=== PATIENT | male | born 1985 | race African-American/Black ===

== ENCOUNTER 2019-11-25 21:41 | Inpatient (IN) | payer OTHER ==
--- NOTE | 2019-11-25 22:01 | HP ---
COWS - Scale Resting Pulse: 0= [place] 80 or Below Sweatin= Beads of Sweat on Face Restless Observation: 1= Difficult to Sit Still Pupil Size: 1= Pupils >than Normal Bone or Joint Aches: 4=Acute Joint/Muscle Pain Runny Nose/ Eye Tearin= None GI Upset > 30mins: 1= Stomach Cramp Tremor Observation: 0= None Yawning Observation: 1= 1-2x During Session Anxiety or Irritability: 1=Feels Anxious/Irritable Goose Flesh Skin: 0=Smooth Skin COWS Score: 12 CIWA Score - Admission Criteria OAS Guidelines: Admission for Medically Managed Detox: Requires at least one of the followin. CIWA greater than 12 2. Seizures within the past 24 hours 3. Delirium tremens within the past 24 hours 4. Hallucinations within the past 24 hours 5. Acute intervention needed for co occurring medical disorder 6. Acute intervention needed for co occurring psychiatric disorder 7. Severe withdrawal that cannot be handled at a lower level of care (continued vomiting, continued diarrhea, abnormal vital signs) requiring intravenous medication and/or fluids 8. Admission ROS [facility] Chief Complaint: seeking heroin detox History of Present Illness: HERE FOR HEROIN DETOX. THIS IS CLIENT FIRST ADMISSION HERE. PRESENTS WITH C/O WORSENING WITHDRAWAL SX'S. SEEKING DETOX. HE REPORTS DAILY USE OF HEROIN. LAST USED TODAY APPROX 4 BAGS VIA NASAL. DENIES IVDU. DENIES PREVIOUS INPATIENT TXMENT. DENIES HX/O DRUG OVERDOSE, BLACKOUTS, SEIZURE D/O. DENIES ANY SIGNIFICANT CLEAN TIME. HAS BEEN AN ADDICT OF HEROIN FOR THE PAST 2 YEARS. 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 Exam Limitations: No Limitations - Ebola screening Have you traveled outside of the country in the last 21 days: No Have you had contact with anyone from an Ebola affected area: No Have you been sick,other than usual withdrawal symptoms: No Do you have a fever: No - Review of Systems Constitutional: Chills, Loss of Appetite, Malaise, Changes in sleep, Unintentional Wgt. Loss, Other (SWEATS) EENT: reports: No Symptoms Reported Respiratory: reports: No Symptoms reported Cardiac: reports: No Symptoms Reported GI: reports: Poor Appetite, Poor Fluid Intake, Abdominal cramping : reports: No Symptoms Reported Musculoskeletal: reports: No Symptoms Reported Integumentary: reports: Other (SWEATING) Neuro: reports: No Symptoms reported Endocrine: reports: No Symptoms Reported Hematology: reports: No Symptoms Reported Psychiatric: reports: Orientated x3, Depressed (DENIES SI/HI/Avh) Other Systems: Reviewed and Negative Patient History - Patient Medical History Hx Anemia: No Hx Asthma: No Hx Chronic Obstructive Pulmonary Disease (COPD): No Hx Cancer: No Hx Cardiac Disorders: No Hx Congestive Heart Failure: No Hx Hypertension: Yes (NON COMPLAINT- DOES NOT RECALL MED) Hx Hypercholesterolemia: No Hx Pacemaker: No HX Cerebrovascular Accident: No Hx Seizures: No Hx Dementia: No Hx Diabetes: No Hx Gastrointestinal Disorders: No Hx Liver Disease: No Hx Genitourinary Disorders: No Hx Sexually Transmitted Disorders: No Hx Renal Disease (ESRD): No Hx Thyroid Disease: No Hx Human Immunodeficiency Virus (HIV): No Hx Hepatitis C: No Hx Depression: Yes (NO MEDS) Hx Suicide Attempt: No Hx Bipolar Disorder: No Hx Schizophrenia: No Other Medical History: DENIES - Patient Surgical History Past Surgical History: No - PPD History Previous Implant?: Yes Documented Results: Positive w/o proof PPD to be Administered?: Yes - Smoking Cessation Smoking history: Current every day smoker Have you smoked in the past 12 months: Yes Aproximately how many cigarettes per day: 3 Cigars Per Day: 0 Hx Chewing Tobacco Use: No Initiated information on smoking cessation: Yes 'Breaking Loose' booklet given: 11/25/19 - Substance & Tx. History Hx Alcohol Use: No Hx Substance Use: Yes Substance Use Type: Heroin Hx Substance Use Treatment: No - Substances abused Heroin Substance route: Inhalation Frequency: Daily Amount used: 4 Age of first use: 32 Date of last use: 11/25/19 (3) Admission Physical Exam S - Physical General Appearance: Yes: Mild Distress, Sweating, Anxious HEENTM: Yes: EOMI, Normocephalic, Normal Voice, ARIELLE, Pharynx Normal, Other (POOR DENTITION) Respiratory: Yes: Chest Non-Tender, Lungs Clear, Normal Breath Sounds, No Respiratory Distress, No Accessory Muscle Use Neck: Yes: No masses,lesions,Nodules, Supple, Trachea in good position Breast: Yes: Breasts Symetrical Cardiology: Yes: Regular Rhythm, Regular Rate, S1, S2 Abdominal: Yes: Non Tender, Soft, Increased Bowel Sounds Genitourinary: Yes: Within Normal Limits (NO C/O) Back: Yes: Normal Inspection Musculoskeletal: Yes: full range of Motion, Gait Steady Extremities: Yes: Normal Capillary Refill, Normal Range of Motion, Non-Tender Neurological: Yes: Fully Oriented, Alert, Motor Strength 5/5, Depressed Affect Integumentary: Yes: Cold (COOL), Clammy Lymphatic: Yes: Within Normal Limits - Diagnostic (1) Opioid dependence with withdrawal Current Visit: Yes Status: Acute (2) Homeless Current Visit: Yes Status: Suspected Comment: REPORTED (3) Nicotine dependence Current Visit: Yes Status: Chronic Qualifiers: Nicotine product type: cigarettes Substance use status: uncomplicated Qualified Code(s): F17.210 - Nicotine dependence, cigarettes, uncomplicated (4) Substance induced mood disorder Current Visit: Yes Status: Acute (5) Depressed affect Current Visit: Yes Status: Acute (6) HTN (hypertension) Current Visit: Yes Status: Chronic Qualifiers: Hypertension type: unspecified Qualified Code(s): I10 - Essential (primary) hypertension (7) Non compliance w medication regimen Current Visit: Yes Status: Chronic Cleared for Admission [facility] - Detox or Rehab [facility] Level of Care: Medically Managed Detox Regimen/Protocol: Methadone Claeared for Rehab Admission: No Inpatient Rehab Admission - Rehab Decision to Admit Inpatient rehab admission?: No
[2019-11-25] MEDS ORDERED: BISMUTH SUBSALICYLATE 524 MG/30 ML UD PO PRN (22:07)
[2019-11-25] MEDS ORDERED: NALOXONE HCL 0.4 MG/ML VIAL IM PRN (22:07)
[2019-11-25] MEDS ORDERED: MAGNESIUM CITRATE 300 ML BOTTLE PO PRN (22:07)
[2019-11-25] MEDS ORDERED: ACETAMINOPHEN 325 MG TABLET (FP) PO PRN ×2 (22:07)
[2019-11-25] MEDS ORDERED: P-EPHED 60MG/TRIPROLIDI 2.5MG TABLET PO PRN (22:07)
[2019-11-25] MEDS ORDERED: MAGNESIUM HYDROX 2400MG/30ML ORAL SUSPENSION 30 ML CUP PO PRN (22:07)
[2019-11-25] MEDS ORDERED: METHADONE HCL 10 MG TABLET (FOR DETOX USE ONLY) PO ONE (22:07)
[2019-11-25] MEDS ORDERED: IBUPROFEN 400 MG TABLET (FP) PO PRN (22:07)
[2019-11-25] MEDS ORDERED: MENTHOL/PHENOL 1 EACH UD MM PRN (22:07)
[2019-11-25] MEDS ORDERED: DICYCLOMINE HCL 10 MG CAPSULE PO PRN (22:07)
[2019-11-25] MEDS ORDERED: cloNIDine HCL 0.1 MG TABLET PO PRN (22:07)
[2019-11-25] MEDS ORDERED: NICOTINE POLACRILEX 2 MG GUM BUC PRN (22:07)
[2019-11-25] MEDS ORDERED: guaiFENesin 200 MG/10 ML 10 ML UNIT-DOSE CUPS PO PRN (22:07)
[2019-11-25] MEDS ORDERED: MAG HYDROX/AL HYDROX/SIMETH 30 ML UNIT-DOSE CUP PO PRN (22:07)
[2019-11-25 22:42] VITALS: BMI 29.1
[2019-11-25] MEDS ORDERED: ONDANSETRON *ODT* 4 MG TABLET SL ONE (23:00)
[2019-11-26] MEDS ORDERED: hydrOXYzine PAMOATE 25 MG CAPSULE (FP) PO SCH (06:00)
--- NOTE | 2019-11-26 09:12 | EKG ---
Test Reason : Blood Pressure : / mmHG Vent. Rate : 076 BPM Atrial Rate : 076 BPM P-R Int : 148 ms QRS Dur : 094 ms QT Int : 378 ms P-R-T Axes : 010 061 043 degrees QTc Int : 425 ms NORMAL SINUS RHYTHM ST ELEVATION, CONSIDER EARLY REPOLARIZATION BORDERLINE ECG NO PREVIOUS ECGS AVAILABLE Confirmed by Ajay Buck ([id number]) on 11/26/2019 9:11:38 AM Referred By: Ramiro Britt Confirmed By:Ajay Buck
[2019-11-26] MEDS ORDERED: METHADONE HCL 10 MG TABLET (FOR DETOX USE ONLY) PO ONE (10:00)
[2019-11-26] MEDS: NICOTINE 14 MG/24 HOURS TOPICAL PATCH TD SCH (10:30)
[2019-11-26] MEDS: PRENATAL VITAMINS W/ FOLIC ACID TABLET (FP) PO SCH (10:31)
--- NOTE | 2019-11-26 11:19 | PN ---
BHS COWS - Scale Resting Pulse: 0= [place] 80 or Below Sweatin= Chills/Flushing Restless Observation: 1= Difficult to Sit Still Pupil Size: 0= Normal to Room Light Bone or Joint Aches: 2= Severe Diffuse Aches Runny Nose/ Eye Tearin= Nasal Congestion GI Upset > 30mins: 0= None Tremor Observation of Outstretched Hands: 1= Tremor [place], Not Seen Yawning Observation: 1= 1-2x During Session Anxiety or Irritability: 2=Irritable/Anxious Goose Flesh Skin: 0=Smooth Skin COWS Score: 9 BHS Progress Note (SOAP) Subjective: sweats shakes anxiety restless Objective: 11/26/19 11:17 Vital Signs Temperature 97.1 F L 11/26/19 05:46 Pulse Rate 54 L 11/26/19 05:46 Respiratory Rate 20 11/26/19 05:46 Blood Pressure 121/77 11/26/19 05:46 O2 Sat by Pulse Oximetry (%) 99 11/26/19 05:46 labs pending [email or web address] ambulating no acute distress Assessment: 11/26/19 11:18 withdrawals Plan: continue detox valium 10mg prn x 3 days
[2019-11-26 11:51] LABS: HEMATOCRIT 47.2 % (35.4-49); HEMOGLOBIN 15.5 GM/dL (11.7-16.9); MCH 29.8 pg (25.7-33.7); MCHC 32.8 g/dl (32.0-35.9); MEAN CELL VOLUME 90.9 fl (80-96); MEAN PLT VOLUME 10.1 fl (7.5-11.1); PLATELET COUNT 160 K/MM3 (134-434); RBC 5.19 M/mm3 (4.00-5.60); RDW 13.5 % (11.9-15.9); WHITE BLOOD COUNT 3.9 K/mm3 (4.0-10.0)
[2019-11-26 11:58] LABS: ALBUMIN 3.5 g/dl (3.4-5.0); BILIRUBIN,TOTAL 0.4 mg/dL (0.2-1); BLOOD UREA NITROGEN 12.8 mg/dL (7-18); CREATININE 0.9 mg/dL (0.55-1.3); POTASSIUM 4.4 mmol/L (3.5-5.1); TOT PROT 6.5 g/dl (6.4-8.2)
--- NOTE | 2019-11-26 13:02 | EKG ---
Test Reason : Blood Pressure : / mmHG Vent. Rate : 057 BPM Atrial Rate : 057 BPM P-R Int : 162 ms QRS Dur : 092 ms QT Int : 426 ms P-R-T Axes : 012 049 030 degrees QTc Int : 414 ms SINUS BRADYCARDIA OTHERWISE NORMAL ECG WHEN COMPARED WITH ECG OF 25-NOV-2019 21:22, NO SIGNIFICANT CHANGE WAS FOUND Confirmed by MD SOLIS PENG ([id number]) on 11/26/2019 1:02:00 PM Referred By: Ramiro Britt Confirmed By:MARBELLA SOLIS MD
[2019-11-26] MEDS ORDERED: ONDANSETRON *ODT* 4 MG TABLET SL PRN (14:27)
[2019-11-26] MEDS: THIAMINE HCL 100 MG TABLET (FP) PO SCH (22:38)
[2019-11-26] MEDS: MELATONIN 5 MG TABLETS PO SCH (22:38)
[2019-11-27] MEDS ORDERED: METHADONE HCL 10 MG TABLET (FOR DETOX USE ONLY) PO ONE (10:00)
[2019-11-27] MEDS: PRENATAL VITAMINS W/ FOLIC ACID TABLET (FP) PO SCH (11:18)
[2019-11-27] MEDS: NICOTINE 14 MG/24 HOURS TOPICAL PATCH TD SCH (11:18)
[2019-11-27] MEDS: METHOCARBAMOL 500 MG TABLET PO PRN ×2 (11:18→22:22)
[2019-11-27] MEDS ORDERED: METHADONE (DETOX) 10 MG, METHADONE (DETOX) 5 MG PO ONE (11:30)
[2019-11-27] MEDS ORDERED: METHADONE HCL 10 MG TABLET (FOR DETOX USE ONLY) ONE (11:30)
[2019-11-27] MEDS ORDERED: METHADONE HCL 5 MG TABLET (FOR DETOX USE ONLY) ONE (11:30)
--- NOTE | 2019-11-27 11:38 | PN ---
BHS COWS - Scale Resting Pulse: 0= [place] 80 or Below Sweatin= Chills/Flushing Restless Observation: 1= Difficult to Sit Still Pupil Size: 0= Normal to Room Light Bone or Joint Aches: 1= Mild Discomfort Runny Nose/ Eye Tearin= None GI Upset > 30mins: 0= None Tremor Observation of Outstretched Hands: 1= Tremor [place], Not Seen Yawning Observation: 1= 1-2x During Session Anxiety or Irritability: 1=Feels Anxious/Irritable Goose Flesh Skin: 0=Smooth Skin COWS Score: 6 BHS Progress Note (SOAP) Subjective: sweats agitation restless Objective: 11/27/19 11:36 Vital Signs Temperature 97.3 F L 11/27/19 05:43 Pulse Rate 52 L 11/27/19 05:43 Respiratory Rate 20 11/27/19 05:43 Blood Pressure 169/104 H 11/27/19 05:43 O2 Sat by Pulse Oximetry (%) 100 11/27/19 05:43 Laboratory Tests 11/25/19 11/26/19 11/26/19 08:00 08:00 08:00 WBC 3.9 L RBC 5.19 Hgb 15.5 Hct 47.2 MCV 90.9 MCH 29.8 MCHC 32.8 RDW 13.5 Plt Count 160 MPV 10.1 Sodium Potassium Chloride Carbon Dioxide Anion Gap BUN Creatinine Est GFR (CKD-EPI)AfAm Est GFR (CKD-EPI)NonAf Random Glucose Calcium Total Bilirubin AST ALT Alkaline Phosphatase Total Protein Albumin Syphilis Serology Non-reactive COVID-19 ([facility]AS) Not detected 11/26/19 08:00 WBC RBC Hgb Hct MCV MCH MCHC RDW Plt Count MPV Sodium 139 Potassium 4.4 Chloride 106 Carbon Dioxide 31 Anion Gap 2 L BUN 12.8 Creatinine 0.9 Est GFR (CKD-EPI)AfAm 130.52 Est GFR (CKD-EPI)NonAf 112.62 Random Glucose 78 Calcium 9.0 Total Bilirubin 0.4 AST 18 ALT 18 Alkaline Phosphatase 61 Total Protein 6.5 Albumin 3.5 Syphilis Serology COVID-19 ([facility]AS) pt was asked if he ever was on HTN medication; pt states yes but stop taking HCTZ. pt teaching provided on the importance of maintaining with his htn medication to protect vital organs and preventing risks of stroke, heart attack or . pt in agreement aaox3 ambulating no acute distress Assessment: 11/27/19 11:38 withdrawals Plan: continue detox HZTC 12.5mg bid ordered norvasc also added to regimen monitor BP
[2019-11-27] MEDS: HYDROCHLOROTHIAZIDE 12.5 MG CAPSULE (FP) PO SCH ×2 (11:48→22:22)
[2019-11-27] MEDS: amLODIPine BESYLATE 10 MG TABLET (FP) PO SCH (11:48)
[2019-11-27] MEDS: THIAMINE HCL 100 MG TABLET (FP) PO SCH (22:22)
[2019-11-27] MEDS: MELATONIN 5 MG TABLETS PO SCH (22:22)
[2019-11-28] MEDS ORDERED: METHADONE (DETOX) 10 MG, METHADONE (DETOX) 5 MG PO ONE (10:00)
[2019-11-28] MEDS ORDERED: METHADONE HCL 10 MG TABLET (FOR DETOX USE ONLY) ONE (10:01)
[2019-11-28] MEDS ORDERED: METHADONE HCL 5 MG TABLET (FOR DETOX USE ONLY) ONE (10:01)
--- NOTE | 2019-11-28 10:41 | PN ---
BHS COWS - Scale Resting Pulse: 0= [place] 80 or Below Sweatin= Chills/Flushing Restless Observation: 1= Difficult to Sit Still Pupil Size: 0= Normal to Room Light Bone or Joint Aches: 1= Mild Discomfort Runny Nose/ Eye Tearin= None GI Upset > 30mins: 0= None Tremor Observation of Outstretched Hands: 2= Slight Tremor Visible Yawning Observation: 0= None Anxiety or Irritability: 1=Feels Anxious/Irritable Goose Flesh Skin: 0=Smooth Skin COWS Score: 6 BHS Progress Note (SOAP) Subjective: body aches restless Objective: 11/28/19 10:40 Vital Signs Temperature 97.5 F L 11/28/19 05:33 Pulse Rate 64 11/28/19 08:12 Respiratory Rate 16 11/28/19 05:33 Blood Pressure 138/94 11/28/19 08:12 O2 Sat by Pulse Oximetry (%) 99 11/28/19 05:33 Laboratory Tests 11/25/19 11/26/19 11/26/19 08:00 08:00 08:00 WBC 3.9 L RBC 5.19 Hgb 15.5 Hct 47.2 MCV 90.9 MCH 29.8 MCHC 32.8 RDW 13.5 Plt Count 160 MPV 10.1 Sodium Potassium Chloride Carbon Dioxide Anion Gap BUN Creatinine Est GFR (CKD-EPI)AfAm Est GFR (CKD-EPI)NonAf Random Glucose Calcium Total Bilirubin AST ALT Alkaline Phosphatase Total Protein Albumin Syphilis Serology Non-reactive COVID-19 ([facility]AS) Not detected 11/26/19 08:00 WBC RBC Hgb Hct MCV MCH MCHC RDW Plt Count MPV Sodium 139 Potassium 4.4 Chloride 106 Carbon Dioxide 31 Anion Gap 2 L BUN 12.8 Creatinine 0.9 Est GFR (CKD-EPI)AfAm 130.52 Est GFR (CKD-EPI)NonAf 112.62 Random Glucose 78 Calcium 9.0 Total Bilirubin 0.4 AST 18 ALT 18 Alkaline Phosphatase 61 Total Protein 6.5 Albumin 3.5 Syphilis Serology COVID-19 ([facility]AS) aaox3 ambulating no acute distress Assessment: 11/28/19 10:40 withdrawals Plan: continue detox increase fluids
[2019-11-28] MEDS: amLODIPine BESYLATE 10 MG TABLET (FP) PO SCH (10:49)
[2019-11-28] MEDS: PRENATAL VITAMINS W/ FOLIC ACID TABLET (FP) PO SCH (10:49)
[2019-11-28] MEDS: HYDROCHLOROTHIAZIDE 12.5 MG CAPSULE (FP) PO SCH ×2 (10:49→22:16)
[2019-11-28] MEDS: diazePAM 5 MG TABLET PO PRN ×2 (10:50→22:15)
[2019-11-28] MEDS: NICOTINE 14 MG/24 HOURS TOPICAL PATCH TD SCH (10:50)
[2019-11-28] MEDS: THIAMINE HCL 100 MG TABLET (FP) PO SCH (22:15)
[2019-11-28] MEDS: MELATONIN 5 MG TABLETS PO SCH (22:15)
[2019-11-28] MEDS: METHOCARBAMOL 500 MG TABLET PO PRN (22:15)
[2019-11-29] MEDS ORDERED: METHADONE HCL 10 MG TABLET (FOR DETOX USE ONLY) PO ONE (10:00)
[2019-11-29] MEDS: amLODIPine BESYLATE 10 MG TABLET (FP) PO SCH (10:10)
[2019-11-29] MEDS: NICOTINE 14 MG/24 HOURS TOPICAL PATCH TD SCH (10:10)
[2019-11-29] MEDS: PRENATAL VITAMINS W/ FOLIC ACID TABLET (FP) PO SCH (10:11)
[2019-11-29] MEDS: HYDROCHLOROTHIAZIDE 12.5 MG CAPSULE (FP) PO SCH ×2 (10:12→22:30)
[2019-11-29] MEDS ORDERED: ARTIFICIAL TEARS (POLYVINYL ALCOHOL) OPTH DROPS OU PRN (12:35)
--- NOTE | 2019-11-29 12:45 | PN ---
S COWS - Scale Resting Pulse: 1= [place] 81-100 Sweatin= Chills/Flushing Restless Observation: 0= Sits Still Pupil Size: 0= Normal to Room Light Bone or Joint Aches: 0= None Runny Nose/ Eye Tearin= None GI Upset > 30mins: 0= None Tremor Observation of Outstretched Hands: 1= Tremor [place], Not Seen Yawning Observation: 0= None Anxiety or Irritability: 0= None Goose Flesh Skin: 0=Smooth Skin COWS Score: 3 BHS Progress Note (SOAP) Subjective: complaints of chills, anxiety, and mild tremors. Objective: 11/29/19 12:44 Vital Signs 11/29/19 11/29/19 05:38 08:48 Temperature 97.3 F L 97.1 F L Pulse Rate 58 L 82 Respiratory 20 18 Rate Blood Pressure 137/76 141/96 O2 Sat by Pulse 100 100 Oximetry (%) Laboratory Last Values WBC 3.9 K/mm3 (4.0-10.0) L 11/26/19 08:00 RBC 5.19 M/mm3 (4.00-5.60) 11/26/19 08:00 Hgb 15.5 GM/dL (11.7-16.9) 11/26/19 08:00 Hct 47.2 % (35.4-49) 11/26/19 08:00 MCV 90.9 fl (80-96) 11/26/19 08:00 MCH 29.8 pg (25.7-33.7) 11/26/19 08:00 MCHC 32.8 g/dl (32.0-35.9) 11/26/19 08:00 RDW 13.5 % (11.9-15.9) 11/26/19 08:00 Plt Count 160 K/MM3 (134-434) 11/26/19 08:00 MPV 10.1 fl (7.5-11.1) 11/26/19 08:00 Sodium 139 mmol/L (136-145) 11/26/19 08:00 Potassium 4.4 mmol/L (3.5-5.1) 11/26/19 08:00 Chloride 106 mmol/L (98-107) 11/26/19 08:00 Carbon Dioxide 31 mmol/L (21-32) 11/26/19 08:00 Anion Gap 2 MMOL/L (8-16) L 11/26/19 08:00 BUN 12.8 mg/dL (7-18) 11/26/19 08:00 Creatinine 0.9 mg/dL (0.55-1.3) 11/26/19 08:00 Est GFR (CKD-EPI)AfAm 130.52 11/26/19 08:00 Est GFR (CKD-EPI)NonAf 112.62 11/26/19 08:00 Random Glucose 78 mg/dL (74-106) 11/26/19 08:00 Calcium 9.0 mg/dL (8.5-10.1) 11/26/19 08:00 Total Bilirubin 0.4 mg/dL (0.2-1) 11/26/19 08:00 AST 18 U/L (15-37) 11/26/19 08:00 ALT 18 U/L (13-61) 11/26/19 08:00 Alkaline Phosphatase 61 U/L (45-117) 11/26/19 08:00 Total Protein 6.5 g/dl (6.4-8.2) 11/26/19 08:00 Albumin 3.5 g/dl (3.4-5.0) 11/26/19 08:00 Syphilis Serology Non-reactive (NONREACTIVE) 11/26/19 08:00 COVID-19 ([facility]) Not detected (Not Detected) 11/25/19 08:00 Labs noted. Assessment: 11/29/19 12:44 Alert and oriented x3, in no acute respiratory distress. Full ROM, ambulating in hallway with assistance. Skin warm to touch with no lesions noted. D/C in AM Plan: Continue detox protocol. D/C in AM.
[2019-11-29] MEDS: THIAMINE HCL 100 MG TABLET (FP) PO SCH (22:30)
[2019-11-29] MEDS: MELATONIN 5 MG TABLETS PO SCH (22:30)
[2019-11-29] MEDS: METHOCARBAMOL 500 MG TABLET PO PRN (22:33)
[2019-11-30] MEDS ORDERED: METHADONE HCL 5 MG TABLET (FOR DETOX USE ONLY) PO ONE (06:00)
[2019-11-30 06:35] VITALS: BP 120/77; PULSE 58; TEMP 97
--- NOTE | 2019-11-30 14:32 | DS ---
[facility] Detox Discharge Summary Admission Date: 11/25/19 Discharge Date: 11/30/19 - History Present History: Opioid Dependence - Physical Exam Results Vital Signs: Vital Signs Temperature 97 F L 11/30/19 05:43 Pulse Rate 58 L 11/30/19 05:43 Respiratory Rate 16 11/30/19 05:43 Blood Pressure 120/77 11/30/19 05:43 O2 Sat by Pulse Oximetry (%) 100 11/30/19 05:43 Laboratory Tests 11/25/19 11/26/19 11/26/19 08:00 08:00 08:00 WBC 3.9 L RBC 5.19 Hgb 15.5 Hct 47.2 MCV 90.9 MCH 29.8 MCHC 32.8 RDW 13.5 Plt Count 160 MPV 10.1 Sodium Potassium Chloride Carbon Dioxide Anion Gap BUN Creatinine Est GFR (CKD-EPI)AfAm Est GFR (CKD-EPI)NonAf Random Glucose Calcium Total Bilirubin AST ALT Alkaline Phosphatase Total Protein Albumin Syphilis Serology Non-reactive COVID-19 ([facility]AS) Not detected 11/26/19 08:00 WBC RBC Hgb Hct MCV MCH MCHC RDW Plt Count MPV Sodium 139 Potassium 4.4 Chloride 106 Carbon Dioxide 31 Anion Gap 2 L BUN 12.8 Creatinine 0.9 Est GFR (CKD-EPI)AfAm 130.52 Est GFR (CKD-EPI)NonAf 112.62 Random Glucose 78 Calcium 9.0 Total Bilirubin 0.4 AST 18 ALT 18 Alkaline Phosphatase 61 Total Protein 6.5 Albumin 3.5 Syphilis Serology COVID-19 ([facility]) ROS DENIES CRAVINGS, SHAKES, SWEATS AND BODY ACHES PE ALERT AND ORIENTED X 3 SKIN WARM AND DRY EOMS INTACT BL EXT FULL ROM, AMB AD MILAN NO TREMORS DENIES SI/HI A/P OPIOD DEPENDENCE MEDICALLY STABLE FOR D/C - Treatment Hospital Course: Detox Protocol Followed, Detoxed Safely, Responded well, Discharged Condition Good, Rehab Referral Accepted Patient has Accepted a Rehab Referral to: [facility] - Medication Discharge Medications: Ambulatory Orders NK [No Known Home Medication] 11/25/19 - AMA Did Patient Leave Against Medical Advice: No
== END 2019-11-30 09:10 | disposition home or self-care (01) | DRG 773 ==
LOC: YASAS 21:41 → Y6N 22:26
PROVIDERS: ADMIT Allergy & Immunology; ATTEND Allergy & Immunology
PROC: HZ2ZZZZ Detoxification Services for Substance Abuse Treatment (ICD-10-PCS; principal; 2019-11-25)
DX: F11.23 Opioid dependence with withdrawal (principal); F17.210 Nicotine dependence, cigarettes, uncomplicated; F19.24 Other psychoactive substance dependence with psychoactive substance-induced mood disorder; F32.9 Major depressive disorder, single episode, unspecified; I10 Essential (primary) hypertension; Z91.14 Patient's other noncompliance with medication regimen; Z59.0 Homelessness
CPT/HCPCS: 36415; 80053; 85027; 86780; 93005; 93010; J0735; Q0162; U0003

== ENCOUNTER 2019-12-14 21:57 | Inpatient (IN) | payer OTHER ==
--- NOTE | 2019-12-14 22:09 | HP ---
COWS - Scale Resting Pulse: 1= [place] 81-100 Sweatin= No chills or Flushing Restless Observation: 1= Difficult to Sit Still Pupil Size: 0= Normal to Room Light Bone or Joint Aches: 4=Acute Joint/Muscle Pain Runny Nose/ Eye Tearin= Nasal Congestion GI Upset > 30mins: 0= None Tremor Observation: 0= None Yawning Observation: 2= >3x During Session Anxiety or Irritability: 2=Irritable/Anxious Goose Flesh Skin: 0=Smooth Skin COWS Score: 11 CIWA Score - Admission Criteria OASAS Guidelines: Admission for Medically Managed Detox: Requires at least one of the followin. CIWA greater than 12 2. Seizures within the past 24 hours 3. Delirium tremens within the past 24 hours 4. Hallucinations within the past 24 hours 5. Acute intervention needed for co occurring medical disorder 6. Acute intervention needed for co occurring psychiatric disorder 7. Severe withdrawal that cannot be handled at a lower level of care (continued vomiting, continued diarrhea, abnormal vital signs) requiring intravenous medication and/or fluids 8. Admitting History and Physical - Smoking History Smoking history: Current every day smoker Have you smoked in the past 12 months: Yes Aproximately how many cigarettes per day: 3 - Alcohol/Substance Use Hx Alcohol Use: No Admission ROS [facility] - HPI Chief Complaint: seeking dwetox, wants to stop using heroin Allergies/Adverse Reactions: Allergies Allergy/AdvReac Type Severity Reaction Status Date / Time No Known Allergies Allergy Verified 11/25/19 22:30 History of Present Illness: here for herion detox. client is self referred. known to program. last dc 11/30/2019. client reports relapsing the same day. using 1 bundle of heroin daily. last use earlier today. denies hx/o ivdu, drug overdose. denies any other illcit substance of abuse. denies any significant period of clean time in the past 1 year. lives alone, unemployed, denies legals. client would like to continue to rehab after detox. states attempted after last txment but was dc to community and relapsed immediately Exam Limitations: No Limitations - Ebola screening Have you traveled outside of the country in the last 21 days: No Have you had contact with anyone from an Ebola affected area: No Have you been sick,other than usual withdrawal symptoms: No Do you have a fever: No - Review of Systems Constitutional: Chills, Loss of Appetite, Malaise, Night Sweats, Changes in sleep EENT: reports: Throat Pain Respiratory: reports: No Symptoms reported Cardiac: reports: No Symptoms Reported GI: reports: Poor Appetite, Poor Fluid Intake : reports: No Symptoms Reported Musculoskeletal: reports: Joint Pain Integumentary: reports: No Symptoms Reported Neuro: reports: Headache Endocrine: reports: No Symptoms Reported Hematology: reports: No Symptoms Reported Psychiatric: reports: Orientated x3, Agitated (irritable), Anxious, Depressed Other Systems: Reviewed and Negative Patient History - Patient Medical History Hx Anemia: No Hx Asthma: No Hx Chronic Obstructive Pulmonary Disease (COPD): No Hx Cancer: No Hx Cardiac Disorders: No Hx Congestive Heart Failure: No Hx Hypertension: Yes (NON COMPLAINT- DOES NOT RECALL MED) Hx Hypercholesterolemia: No Hx Pacemaker: No HX Cerebrovascular Accident: No Hx Seizures: No Hx Dementia: No Hx Diabetes: No Hx Gastrointestinal Disorders: No Hx Liver Disease: No Hx Genitourinary Disorders: No Hx Sexually Transmitted Disorders: No Hx Renal Disease (ESRD): No Hx Thyroid Disease: No Hx Human Immunodeficiency Virus (HIV): No Hx Hepatitis C: No Hx Depression: Yes Hx Suicide Attempt: No Hx Bipolar Disorder: No Hx Schizophrenia: No Other Medical History: denies - Patient Surgical History Past Surgical History: No Hx Neurologic Surgery: No Hx Cataract Extraction: No Hx Cardiac Surgery: No Hx Lung Surgery: No Hx Breast Surgery: No Hx Breast Biopsy: No Hx Abdominal Surgery: No Hx Appendectomy: No Hx Cholecystectomy: No Hx Genitourinary Surgery: No Hx Section: No Hx Orthopedic Surgery: No Anesthesia Reaction: No - PPD History Previous Implant?: Yes Documented Results: Negative w/proof Implanted On Prior [facility] Admission?: Yes Date: 11/27/19 Results: 0mm PPD to be Administered?: No - Smoking Cessation Smoking history: Current every day smoker Have you smoked in the past 12 months: Yes Aproximately how many cigarettes per day: 3 Cigars Per Day: 0 Hx Chewing Tobacco Use: No Initiated information on smoking cessation: Yes 'Breaking Loose' booklet given: 12/14/19 - Substance & Tx. History Hx Alcohol Use: Yes Hx Substance Use: Yes Substance Use Type: Heroin Hx Substance Use Treatment: Yes ([facility]) - Substances abused Heroin Substance route: Inhalation Frequency: Daily Amount used: 1 bundle Age of first use: 30 Date of last use: 12/14/19 Admission Physical Exam [facility] - Physical General Appearance: Yes: Mild Distress, Irritable, Anxious HEENTM: Yes: EOMI, Normocephalic, Normal Voice, ARIELLE, Pharynx Normal Respiratory: Yes: Chest Non-Tender, Lungs Clear, Normal Breath Sounds, No Respiratory Distress, No Accessory Muscle Use Neck: Yes: No masses,lesions,Nodules, Supple, Trachea in good position Breast: Yes: Breasts Symetrical Cardiology: Yes: Regular Rhythm, Regular Rate, S1, S2 Abdominal: Yes: Normal Bowel Sounds, Non Tender, Soft Genitourinary: Yes: Within Normal Limits Back: Yes: Normal Inspection Musculoskeletal: Yes: full range of Motion, Gait Steady Extremities: Yes: Normal Capillary Refill, Normal Range of Motion, Non-Tender Neurological: Yes: Fully Oriented, Alert, Motor Strength 5/5, Depressed Affect Integumentary: Yes: Warm, Clammy Lymphatic: Yes: Within Normal Limits - Diagnostic (1) Depressed affect Current Visit: Yes Status: Acute (2) Opioid dependence with withdrawal Current Visit: Yes Status: Acute (3) Substance induced mood disorder Current Visit: Yes Status: Suspected (4) HTN (hypertension) Current Visit: Yes Status: Chronic Qualifiers: Hypertension type: essential hypertension Qualified Code(s): I10 - Essential (primary) hypertension (5) Nicotine dependence Current Visit: Yes Status: Chronic Qualifiers: Nicotine product type: cigarettes Substance use status: uncomplicated Qualified Code(s): F17.210 - Nicotine dependence, cigarettes, uncomplicated (6) Non compliance w medication regimen Current Visit: Yes Status: Chronic Cleared for Admission [facility] - Detox or Rehab [facility] Level of Care: Medically Managed Detox Regimen/Protocol: Methadone Claeared for Rehab Admission: No Breathalyzer - Breathalyzer Breathalyzer: 0 Urine Drug Screen - Test Device Lot number: [id number] Expiration date: 07/29/21 - Control Is test valid?: Yes - Results Drug screen NEGATIVE: No Urine drug screen results: FEN-Fentanyl, MOP-Opiates Inpatient Rehab Admission - Rehab Decision to Admit Inpatient rehab admission?: No
[2019-12-14] MEDS ORDERED: P-EPHED 60MG/TRIPROLIDI 2.5MG TABLET PO PRN (22:12)
[2019-12-14] MEDS ORDERED: METHOCARBAMOL 500 MG TABLET PO PRN (22:12)
[2019-12-14] MEDS ORDERED: NALOXONE HCL 0.4 MG/ML VIAL IM PRN (22:12)
[2019-12-14] MEDS ORDERED: MAG HYDROX/AL HYDROX/SIMETH 30 ML UNIT-DOSE CUP PO PRN (22:12)
[2019-12-14] MEDS ORDERED: guaiFENesin 200 MG/10 ML 10 ML UNIT-DOSE CUPS PO PRN (22:12)
[2019-12-14] MEDS ORDERED: hydrOXYzine PAMOATE 25 MG CAPSULE (FP) PO PRN (22:12)
[2019-12-14] MEDS ORDERED: ONDANSETRON *ODT* 4 MG TABLET SL ONE (22:12)
[2019-12-14] MEDS ORDERED: NICOTINE POLACRILEX 2 MG GUM BUC PRN (22:12)
[2019-12-14] MEDS ORDERED: MAGNESIUM HYDROX 2400MG/30ML ORAL SUSPENSION 30 ML CUP PO PRN (22:12)
[2019-12-14] MEDS ORDERED: MENTHOL/PHENOL 1 EACH UD MM PRN (22:12)
[2019-12-14] MEDS ORDERED: ACETAMINOPHEN 325 MG TABLET (FP) PO PRN ×2 (22:12)
[2019-12-14] MEDS ORDERED: DICYCLOMINE HCL 10 MG CAPSULE PO PRN (22:12)
[2019-12-14] MEDS ORDERED: BISMUTH SUBSALICYLATE 524 MG/30 ML UD PO PRN (22:12)
[2019-12-14] MEDS ORDERED: METHADONE HCL 10 MG TABLET (FOR DETOX USE ONLY) PO ONE (22:12)
[2019-12-14] MEDS ORDERED: MAGNESIUM CITRATE 300 ML BOTTLE PO PRN (22:12)
[2019-12-14 22:50] VITALS: BMI 26.4
[2019-12-14] MEDS: cloNIDine HCL 0.1 MG TABLET PO PRN (23:49)
[2019-12-15] MEDS ORDERED: METHADONE HCL 5 MG TABLET (FOR DETOX USE ONLY) ONE (08:41)
[2019-12-15] MEDS ORDERED: METHADONE HCL 10 MG TABLET (FOR DETOX USE ONLY) ONE (08:41)
[2019-12-15] MEDS ORDERED: METHADONE (DETOX) 20 MG, METHADONE (DETOX) 5 MG PO ONE (10:00)
[2019-12-15] MEDS: PRENATAL VITAMINS W/ FOLIC ACID TABLET (FP) PO SCH (10:16)
[2019-12-15] MEDS: NICOTINE 14 MG/24 HOURS TOPICAL PATCH TD SCH (10:16)
[2019-12-15 10:47] LABS: ALBUMIN 3.2 g/dl (3.4-5.0); BILIRUBIN,TOTAL 0.2 mg/dL (0.2-1); BLOOD UREA NITROGEN 13.2 mg/dL (7-18); CALCIUM 8.5 mg/dL (8.5-10.1); CREATININE 0.9 mg/dL (0.55-1.3); POTASSIUM 4.2 mmol/L (3.5-5.1); TOT PROT 6.1 g/dl (6.4-8.2)
[2019-12-15 10:57] LABS: HEMOGLOBIN 14.1 GM/dL (11.7-16.9); RDW 13.4 % (11.9-15.9)
[2019-12-15 11:03] LABS: HEMATOCRIT 43.2 % (35.4-49); MCH 29.2 pg (25.7-33.7); MCHC 32.6 g/dl (32.0-35.9); MEAN CELL VOLUME 89.6 fl (80-96); MEAN PLT VOLUME 10.1 fl (7.5-11.1); PLATELET COUNT 160 K/MM3 (134-434); RBC 4.82 M/mm3 (4.00-5.60); WHITE BLOOD COUNT 4.8 K/mm3 (4.0-10.0)
--- NOTE | 2019-12-15 11:27 | PN ---
BHS COWS - Scale Resting Pulse: 0= [place] 80 or Below Sweatin= No chills or Flushing Restless Observation: 0= Sits Still Pupil Size: 1= Pupils >than Normal Bone or Joint Aches: 1= Mild Discomfort Runny Nose/ Eye Tearin= Nasal Congestion GI Upset > 30mins: 1= Stomach Cramp Tremor Observation of Outstretched Hands: 2= Slight Tremor Visible Yawning Observation: 1= 1-2x During Session Anxiety or Irritability: 2=Irritable/Anxious Goose Flesh Skin: 0=Smooth Skin COWS Score: 9 BHS Progress Note (SOAP) Subjective: alert,irritable,anxious,interrupted sleep,pain in the body and back Objective: 12/15/19 11:26 Vital Signs Temperature 97.7 F 12/15/19 08:34 Pulse Rate 56 L 12/15/19 08:34 Respiratory Rate 18 12/15/19 08:34 Blood Pressure 155/98 12/15/19 08:34 O2 Sat by Pulse Oximetry (%) 99 12/15/19 05:19 12/15/19 11:26 Laboratory Last Values WBC 4.8 K/mm3 (4.0-10.0) 12/15/19 07:45 RBC 4.82 M/mm3 (4.00-5.60) 12/15/19 07:45 Hgb 14.1 GM/dL (11.7-16.9) 12/15/19 07:45 Hct 43.2 % (35.4-49) 12/15/19 07:45 MCV 89.6 fl (80-96) 12/15/19 07:45 MCH 29.2 pg (25.7-33.7) 12/15/19 07:45 MCHC 32.6 g/dl (32.0-35.9) 12/15/19 07:45 RDW 13.4 % (11.9-15.9) 12/15/19 07:45 Plt Count 160 K/MM3 (134-434) 12/15/19 07:45 MPV 10.1 fl (7.5-11.1) 12/15/19 07:45 Sodium 143 mmol/L (136-145) 12/15/19 07:45 Potassium 4.2 mmol/L (3.5-5.1) 12/15/19 07:45 Chloride 107 mmol/L (98-107) 12/15/19 07:45 Carbon Dioxide 32 mmol/L (21-32) 12/15/19 07:45 Anion Gap 4 MMOL/L (8-16) L 12/15/19 07:45 BUN 13.2 mg/dL (7-18) 12/15/19 07:45 Creatinine 0.9 mg/dL (0.55-1.3) 12/15/19 07:45 Est GFR (CKD-EPI)AfAm 130.52 12/15/19 07:45 Est GFR (CKD-EPI)NonAf 112.62 12/15/19 07:45 Random Glucose 81 mg/dL (74-106) 12/15/19 07:45 Calcium 8.5 mg/dL (8.5-10.1) 12/15/19 07:45 Total Bilirubin 0.2 mg/dL (0.2-1) 12/15/19 07:45 AST 18 U/L (15-37) 12/15/19 07:45 ALT 19 U/L (13-61) 12/15/19 07:45 Alkaline Phosphatase 66 U/L (45-117) 12/15/19 07:45 Total Protein 6.1 g/dl (6.4-8.2) L 12/15/19 07:45 Albumin 3.2 g/dl (3.4-5.0) L 12/15/19 07:45 Assessment: 12/15/19 11:27 withdrawal symptom Plan: continue detox methadone regimen
--- NOTE | 2019-12-15 12:40 | CONSULT ---
[facility] Psychiatric Consult - Data Date of interview: 12/15/19 Admission source: [facility] Identifying data: Revisit to [facility] and admission to [address] [place] [address] for this 34 y/o AA male self-referred for detoxification treatment. OSMEL issues : heroin, nicotine. Patient is single, father of one, homeless, unemployed and supported on food stamps. Substance Abuse History: Discussed with the patient. OSMEL profile as follows : Smoking history: Current every day smoker. Have you smoked in the past 12 months: Yes. Aproximately how many cigarettes per day: 3. Cigars Per Day: 0. Hx Chewing Tobacco Use: No. Initiated information on smoking cessation: Yes. 'Breaking Loose' booklet given: 12/14/19. - Substance & Tx. History. Hx Alcohol Use: Yes. Hx Substance Use: Yes. Substance Use Type: Heroin. Hx Substance Use Treatment: Yes ([facility]). - Substances abused. Heroin. Substance route: Inhalation. Frequency: Daily. Amount used: 1 bundle. Age of first use: 30. Date of last use: 12/14/19 Medical History: Medical profile is remarkable for hypertension. Psychiatric History: Patient denies history of psychiatric hospitalizations, OPD care or suicide attempts. Physical/Sexual Abuse/Trauma History: Patient denies. Additional Comment: Urine drug screen results: FEN-Fentanyl, MOP-Opiates. Noted. Mental Status Exam - Mental Status Exam Alert and Oriented to: Time, Place, Person Cognitive Function: Good Patient Appearance: Unkempt, Disheveled Mood: Withdrawn Affect: Appropriate, Normal Range Patient Behavior: Fatigued, Appropriate, Cooperative Speech Pattern: Clear, Appropriate Voice Loudness: Normal Thought Process: Intact, Goal Oriented Thought Disorder: Not Present Hallucinations: Denies Suicidal Ideation: Denies Homicidal Ideation: Denies Insight/Judgement: Poor Sleep: Well Appetite: Good Gait/Station: Normal Psychiatric Findings - Problem List ([place] 1, 2,3) (1) Opioid dependence with withdrawal Current Visit: Yes Status: Acute (2) Nicotine dependence Current Visit: Yes Status: Chronic Qualifiers: Nicotine product type: cigarettes Substance use status: uncomplicated Qualified Code(s): F17.210 - Nicotine dependence, cigarettes, uncomplicated - Initial Treatment Plan Initial Treatment Plan: Psychoeducation. Sleep hygiene. Detoxification in progress. Support. Observation.
[2019-12-15] MEDS ORDERED: MASKS NR ONE (16:40)
[2019-12-15] MEDS: cloNIDine HCL 0.1 MG TABLET PO PRN ×2 (17:49→22:19)
--- NOTE | 2019-12-15 18:27 | EKG ---
Test Reason : Blood Pressure : / mmHG Vent. Rate : 063 BPM Atrial Rate : 063 BPM P-R Int : 152 ms QRS Dur : 092 ms QT Int : 406 ms P-R-T Axes : 071 060 041 degrees QTc Int : 415 ms NORMAL SINUS RHYTHM NORMAL ECG WHEN COMPARED WITH ECG OF 26-NOV-2019 10:39, NO SIGNIFICANT CHANGE WAS FOUND Confirmed by ROSITA HAMEED MD ([id number]) on 12/15/2019 6:27:05 PM Referred By: Confirmed By:ROSITA HAMEED MD
[2019-12-15] MEDS: THIAMINE HCL 100 MG TABLET (FP) PO SCH (22:18)
[2019-12-15] MEDS: MELATONIN 5 MG TABLETS PO SCH (22:19)
[2019-12-15] MEDS: IBUPROFEN 400 MG TABLET (FP) PO PRN (22:19)
[2019-12-16] MEDS ORDERED: METHADONE HCL 10 MG TABLET (FOR DETOX USE ONLY) PO ONE (10:00)
[2019-12-16] MEDS: NICOTINE 14 MG/24 HOURS TOPICAL PATCH TD SCH (10:20)
[2019-12-16] MEDS: PRENATAL VITAMINS W/ FOLIC ACID TABLET (FP) PO SCH (10:20)
--- NOTE | 2019-12-16 14:26 | PN ---
S COWS - Scale Resting Pulse: 0= [place] 80 or Below Sweatin= No chills or Flushing Restless Observation: 0= Sits Still Pupil Size: 1= Pupils >than Normal Bone or Joint Aches: 2= Severe Diffuse Aches Runny Nose/ Eye Tearin= Nasal Congestion GI Upset > 30mins: 1= Stomach Cramp Tremor Observation of Outstretched Hands: 2= Slight Tremor Visible Yawning Observation: 0= None Anxiety or Irritability: 2=Irritable/Anxious Goose Flesh Skin: 0=Smooth Skin COWS Score: 9 S Progress Note (SOAP) Subjective: alert,irritable,anxious,interrupted sleep,tremor,pain in the body and back,nausea Objective: 12/16/19 14:22 Vital Signs Temperature 98 F 12/16/19 12:34 Pulse Rate 60 12/16/19 12:34 Respiratory Rate 16 12/16/19 12:34 Blood Pressure 136/90 12/16/19 12:34 O2 Sat by Pulse Oximetry (%) 100 12/16/19 12:34 12/16/19 14:22 Laboratory Last Values WBC 4.8 K/mm3 (4.0-10.0) 12/15/19 07:45 RBC 4.82 M/mm3 (4.00-5.60) 12/15/19 07:45 Hgb 14.1 GM/dL (11.7-16.9) 12/15/19 07:45 Hct 43.2 % (35.4-49) 12/15/19 07:45 MCV 89.6 fl (80-96) 12/15/19 07:45 MCH 29.2 pg (25.7-33.7) 12/15/19 07:45 MCHC 32.6 g/dl (32.0-35.9) 12/15/19 07:45 RDW 13.4 % (11.9-15.9) 12/15/19 07:45 Plt Count 160 K/MM3 (134-434) 12/15/19 07:45 MPV 10.1 fl (7.5-11.1) 12/15/19 07:45 Sodium 143 mmol/L (136-145) 12/15/19 07:45 Potassium 4.2 mmol/L (3.5-5.1) 12/15/19 07:45 Chloride 107 mmol/L (98-107) 12/15/19 07:45 Carbon Dioxide 32 mmol/L (21-32) 12/15/19 07:45 Anion Gap 4 MMOL/L (8-16) L 12/15/19 07:45 BUN 13.2 mg/dL (7-18) 12/15/19 07:45 Creatinine 0.9 mg/dL (0.55-1.3) 12/15/19 07:45 Est GFR (CKD-EPI)AfAm 130.52 12/15/19 07:45 Est GFR (CKD-EPI)NonAf 112.62 12/15/19 07:45 Random Glucose 81 mg/dL (74-106) 12/15/19 07:45 Calcium 8.5 mg/dL (8.5-10.1) 12/15/19 07:45 Total Bilirubin 0.2 mg/dL (0.2-1) 12/15/19 07:45 AST 18 U/L (15-37) 12/15/19 07:45 ALT 19 U/L (13-61) 12/15/19 07:45 Alkaline Phosphatase 66 U/L (45-117) 12/15/19 07:45 Total Protein 6.1 g/dl (6.4-8.2) L 12/15/19 07:45 Albumin 3.2 g/dl (3.4-5.0) L 12/15/19 07:45 COVID-19 (PARAS) Not detected (Not Detected) 12/14/19 22:40 HIV Ag/Ab Combo Qual Negative (NEGATIVE) 12/15/19 07:45 Assessment: 12/16/19 14:26 withdrawal symptom Plan: continue detox methadone regimen
[2019-12-16] MEDS: IBUPROFEN 400 MG TABLET (FP) PO PRN ×2 (15:32→22:19)
[2019-12-16 16:11] LABS: EPI CELLS 6 /uL (0-25.1); HYALINE CASTS 1 /uL (0-3.1); PH,URINE >= 9.0 (5.0-8.0); URINE APPEARANCE CLEAR; URINE BACTERIA 29 /uL (0-1359); URINE BILIRUBIN NEGATIVE (NEGATIVE); URINE COLOR YELLOW; URINE GLUCOSE (UA) NEGATIVE (NEGATIVE); URINE KETONE NEGATIVE (NEGATIVE); URINE LEUK ESTERASE 1+ (NEGATIVE); URINE NITRITE NEGATIVE (NEGATIVE); URINE PROTEIN NEGATIVE (NEGATIVE); URINE RBC 3 /uL (0-23.9); URINE WBC 88 /uL (0-25.8)
[2019-12-16] MEDS: MELATONIN 5 MG TABLETS PO SCH (22:17)
[2019-12-16] MEDS: THIAMINE HCL 100 MG TABLET (FP) PO SCH (22:17)
[2019-12-17 09:15] VITALS: BP 134/94; PULSE 69; TEMP 98.1
[2019-12-17] MEDS ORDERED: METHADONE HCL 10 MG TABLET (FOR DETOX USE ONLY) ONE (09:20)
[2019-12-17] MEDS ORDERED: METHADONE HCL 5 MG TABLET (FOR DETOX USE ONLY) ONE (09:21)
[2019-12-17] MEDS ORDERED: METHADONE (DETOX) 10 MG, METHADONE (DETOX) 5 MG PO ONE (10:00)
[2019-12-17] MEDS: PRENATAL VITAMINS W/ FOLIC ACID TABLET (FP) PO SCH (10:16)
[2019-12-17] MEDS: IBUPROFEN 400 MG TABLET (FP) PO PRN (10:16)
[2019-12-17] MEDS: NICOTINE 14 MG/24 HOURS TOPICAL PATCH TD SCH (10:17)
--- NOTE | 2019-12-17 12:28 | PN ---
BHS COWS - Scale Resting Pulse: 0= [place] 80 or Below Sweatin= No chills or Flushing Restless Observation: 0= Sits Still Pupil Size: 0= Normal to Room Light Bone or Joint Aches: 0= None Runny Nose/ Eye Tearin= None GI Upset > 30mins: 0= None Tremor Observation of Outstretched Hands: 0= None Yawning Observation: 0= None Anxiety or Irritability: 1=Feels Anxious/Irritable Goose Flesh Skin: 0=Smooth Skin COWS Score: 1 BHS Progress Note (SOAP) Subjective: alert,no complaint Objective: 12/17/19 12:24 Vital Signs Temperature 98.1 F 12/17/19 08:34 Pulse Rate 69 12/17/19 08:34 Respiratory Rate 18 12/17/19 08:34 Blood Pressure 134/94 12/17/19 08:34 O2 Sat by Pulse Oximetry (%) 100 12/17/19 05:15 12/17/19 12:24 Laboratory Results - last 24 hr 12/14/19 12/16/19 12/16/19 22:40 13:30 14:30 Urine Color Yellow Urine Appearance Clear Urine pH >= 9.0 H Ur Specific [place] 1.017 Urine Protein Negative Urine Glucose (UA) Negative Urine Ketones Negative Urine Blood Negative Urine Nitrite Negative Urine Bilirubin Negative Urine Urobilinogen 1.0 Ur Leukocyte Esterase 1+ H Urine WBC (Auto) 88 Urine RBC (Auto) 3 Urine Casts (Auto) 1 U Epithel Cells (Auto) 6 Urine Bacteria (Auto) 29 Syphilis Serology Non-reactive COVID-19 (PARAS) Not detected Assessment: 12/17/19 12:24 no withdrawal symptom Plan: stable for discharge today,urine for repeat ua and urine c/s pending,r/o uti,will start amoxicillin 500 mgd po tid for 7days,fluid ,water, patient toya go to [facility] for rehab on Sunday as arrangement
--- NOTE | 2019-12-17 12:36 | DS ---
[facility] Detox Discharge Summary Admission Date: 12/14/19 Discharge Date: 12/17/19 - History Present History: Opioid Dependence Additional Comments: alert,oriented x 3 ambulation on the unit lung clear on auscultation bilaterally abdomen soft,no distension,no pain,no tenderness no withdrawal symptom repeat ua and urine for c/s pending stable for discharge today amoxicillin 500 mgs po tid for 7 days,e prescription to [facility] follow up with after care program rehab at [facility] on Sunday12/19/2019 as arrangement total time spending on discharge 35 minutes Pertinent Past History: hypertension nicotine dependence - Physical Exam Results Vital Signs: Vital Signs Temperature 98.1 F 12/17/19 08:34 Pulse Rate 69 12/17/19 08:34 Respiratory Rate 18 12/17/19 08:34 Blood Pressure 134/94 12/17/19 08:34 O2 Sat by Pulse Oximetry (%) 100 12/17/19 05:15 Pertinent Admission Physical Exam Findings: withdrawal signs and symptom Laboratory Last Values WBC 4.8 K/mm3 (4.0-10.0) 12/15/19 07:45 RBC 4.82 M/mm3 (4.00-5.60) 12/15/19 07:45 Hgb 14.1 GM/dL (11.7-16.9) 12/15/19 07:45 Hct 43.2 % (35.4-49) 12/15/19 07:45 MCV 89.6 fl (80-96) 12/15/19 07:45 MCH 29.2 pg (25.7-33.7) 12/15/19 07:45 MCHC 32.6 g/dl (32.0-35.9) 12/15/19 07:45 RDW 13.4 % (11.9-15.9) 12/15/19 07:45 Plt Count 160 K/MM3 (134-434) 12/15/19 07:45 MPV 10.1 fl (7.5-11.1) 12/15/19 07:45 Sodium 143 mmol/L (136-145) 12/15/19 07:45 Potassium 4.2 mmol/L (3.5-5.1) 12/15/19 07:45 Chloride 107 mmol/L (98-107) 12/15/19 07:45 Carbon Dioxide 32 mmol/L (21-32) 12/15/19 07:45 Anion Gap 4 MMOL/L (8-16) L 12/15/19 07:45 BUN 13.2 mg/dL (7-18) 12/15/19 07:45 Creatinine 0.9 mg/dL (0.55-1.3) 12/15/19 07:45 Est GFR (CKD-EPI)AfAm 130.52 12/15/19 07:45 Est GFR (CKD-EPI)NonAf 112.62 12/15/19 07:45 Random Glucose 81 mg/dL (74-106) 12/15/19 07:45 Calcium 8.5 mg/dL (8.5-10.1) 12/15/19 07:45 Total Bilirubin 0.2 mg/dL (0.2-1) 12/15/19 07:45 AST 18 U/L (15-37) 12/15/19 07:45 ALT 19 U/L (13-61) 12/15/19 07:45 Alkaline Phosphatase 66 U/L (45-117) 12/15/19 07:45 Total Protein 6.1 g/dl (6.4-8.2) L 12/15/19 07:45 Albumin 3.2 g/dl (3.4-5.0) L 12/15/19 07:45 Urine Color Yellow 12/16/19 13:30 Urine Appearance Clear 12/16/19 13:30 Urine pH >= 9.0 (5.0-8.0) H 12/16/19 13:30 Ur Specific [place] 1.017 (1.010-1.035) 12/16/19 13:30 Urine Protein Negative (NEGATIVE) 12/16/19 13:30 Urine Glucose (UA) Negative (NEGATIVE) 12/16/19 13:30 Urine Ketones Negative (NEGATIVE) 12/16/19 13:30 Urine Blood Negative (NEGATIVE) 12/16/19 13:30 Urine Nitrite Negative (NEGATIVE) 12/16/19 13:30 Urine Bilirubin Negative (NEGATIVE) 12/16/19 13:30 Urine Urobilinogen 1.0 mg/dL (0.2-1.0) 12/16/19 13:30 Ur Leukocyte Esterase 1+ (NEGATIVE) H 12/16/19 13:30 Urine WBC (Auto) 88 /uL (0-25.8) 12/16/19 13:30 Urine RBC (Auto) 3 /uL (0-23.9) 12/16/19 13:30 Urine Casts (Auto) 1 /uL (0-3.1) 12/16/19 13:30 U Epithel Cells (Auto) 6 /uL (0-25.1) 12/16/19 13:30 Urine Bacteria (Auto) 29 /uL (0-1359) 12/16/19 13:30 Syphilis Serology Non-reactive (NONREACTIVE) 12/16/19 14:30 COVID-19 (PARAS) Not detected (Not Detected) 12/14/19 22:40 HIV Ag/Ab Combo Qual Negative (NEGATIVE) 12/15/19 07:45 - Treatment Hospital Course: Detox Protocol Followed, Detoxed Safely, Responded well, Discharged Condition Good, Rehab Referral Accepted Patient has Accepted a Rehab Referral to: [facility] - Medication Discharge Medications: Ambulatory Orders Amoxicillin - [Amoxicillin 500mg Capsule -] 500 mg PO TID #21 capsule 12/17/19 - Diagnosis (1) Opioid dependence with withdrawal Current Visit: Yes Status: Acute (2) HTN (hypertension) Current Visit: Yes Status: Chronic Qualifiers: Hypertension type: essential hypertension Qualified Code(s): I10 - Essential (primary) hypertension (3) Nicotine dependence Current Visit: Yes Status: Chronic Qualifiers: Nicotine product type: cigarettes Substance use status: uncomplicated Qualified Code(s): F17.210 - Nicotine dependence, cigarettes, uncomplicated (4) UTI (urinary tract infection) Current Visit: Yes Status: Acute - AMA Did Patient Leave Against Medical Advice: No
[2019-12-17] MEDS ORDERED: AMOXICILLIN 500 MG CAPSULE (FP) PO ONE (12:45)
[2019-12-17] MEDS ORDERED: AMOXICILLIN 500 MG CAPSULE (FP) PO SCH (14:00)
[2019-12-17 15:11] LABS: EPI CELLS 23 /uL (0-25.1); HYALINE CASTS 8 /uL (0-3.1); PH,URINE 7.5 (5.0-8.0); URINE APPEARANCE CLEAR; URINE BACTERIA 32 /uL (0-1359); URINE BILIRUBIN NEGATIVE (NEGATIVE); URINE COLOR YELLOW; URINE GLUCOSE (UA) NEGATIVE (NEGATIVE); URINE KETONE NEGATIVE (NEGATIVE); URINE LEUK ESTERASE 1+ (NEGATIVE); URINE NITRITE NEGATIVE (NEGATIVE); URINE PROTEIN NEGATIVE (NEGATIVE); URINE RBC 6 /uL (0-23.9); URINE WBC 134 /uL (0-25.8)
[2019-12-18] MEDS ORDERED: METHADONE HCL 10 MG TABLET (FOR DETOX USE ONLY) PO ONE (10:00)
[2019-12-19] MEDS ORDERED: METHADONE HCL 5 MG TABLET (FOR DETOX USE ONLY) PO ONE (06:00)
== END 2019-12-17 12:54 | disposition home or self-care (01) | DRG 773 ==
LOC: YASAS 21:57 → Y3N 22:33
PROVIDERS: ADMIT Allergy & Immunology; ATTEND Allergy & Immunology
PROC: HZ2ZZZZ Detoxification Services for Substance Abuse Treatment (ICD-10-PCS; principal; 2019-12-14)
DX: F11.23 Opioid dependence with withdrawal (principal); F17.210 Nicotine dependence, cigarettes, uncomplicated; F19.24 Other psychoactive substance dependence with psychoactive substance-induced mood disorder; I10 Essential (primary) hypertension; N39.0 Urinary tract infection, site not specified; R45.89 Other symptoms and signs involving emotional state; Z91.14 Patient's other noncompliance with medication regimen; Z56.0 Unemployment, unspecified
CPT/HCPCS: 36415; 80053; 81003; 85027; 86780; 87086; 87389; 93005; 93010; J0735; U0003

== ENCOUNTER 2020-01-20 21:48 | Inpatient (IN) | payer OTHER ==
[2020-01-20 22:51] VITALS: BMI 25.7
--- NOTE | 2020-01-20 23:11 | HP ---
COWS - Scale Resting Pulse: 0= [place] 80 or Below Sweatin=Flushed/Facial Moisture Restless Observation: 0= Sits Still Pupil Size: 0= Normal to Room Light Bone or Joint Aches: 4=Acute Joint/Muscle Pain Runny Nose/ Eye Tearin= Nasal Congestion GI Upset > 30mins: 0= None Tremor Observation: 2= Slight Tremor Visible Yawning Observation: 1= 1-2x During Session Anxiety or Irritability: 2=Irritable/Anxious Goose Flesh Skin: 0=Smooth Skin COWS Score: 12 CIWA Score - Admission Criteria OASAS Guidelines: Admission for Medically Managed Detox: Requires at least one of the followin. CIWA greater than 12 2. Seizures within the past 24 hours 3. Delirium tremens within the past 24 hours 4. Hallucinations within the past 24 hours 5. Acute intervention needed for co occurring medical disorder 6. Acute intervention needed for co occurring psychiatric disorder 7. Severe withdrawal that cannot be handled at a lower level of care (continued vomiting, continued diarrhea, abnormal vital signs) requiring intravenous medication and/or fluids 8. Admitting History and Physical - Smoking History Smoking history: Current every day smoker Have you smoked in the past 12 months: Yes Aproximately how many cigarettes per day: 3 - Alcohol/Substance Use Hx Alcohol Use: Yes Admission ROS [facility] Chief Complaint: here for heroin detox. c/o withdrawal sx's Allergies/Adverse Reactions: Allergies Allergy/AdvReac Type Severity Reaction Status Date / Time No Known Allergies Allergy Verified 12/14/19 23:09 History of Present Illness: HERE FOR HEROIN DETOX. CLIENT IS SELF REFERRED. KNOWN TO PROGRAM. LAST HERE 1 MONTH AGO. CLIENT REPORT RELAPSING SOON AFTER DC. USING HEROIN DAILY. LAST USE THIS MORNING. PRESENTS NOW WITH C/O WITHDRAWAL SX'S. DENIES IVDU, HX/O DRUG OVERDOSE. DENIES ANY CLEAN TIME IN THE PAST 12 MONTHS. LIVES W/ FAMILY, DENIES LEGALS, UNEMPLOYED Exam Limitations: No Limitations - Ebola screening Have you traveled outside of the country in the last 21 days: No Have you had contact with anyone from an Ebola affected area: No Have you been sick,other than usual withdrawal symptoms: No Do you have a fever: No - Review of Systems Constitutional: Chills, Loss of Appetite, Night Sweats, Changes in sleep, Unintentional Wgt. Loss EENT: reports: No Symptoms Reported Respiratory: reports: Shortness of Breath Cardiac: reports: No Symptoms Reported GI: reports: No Symptoms Reported : reports: No Symptoms Reported Musculoskeletal: reports: Back Pain Integumentary: reports: No Symptoms Reported Neuro: reports: Tremors Endocrine: reports: No Symptoms Reported Hematology: reports: No Symptoms Reported Psychiatric: reports: Orientated x3, Anxious Other Systems: Reviewed and Negative Patient History - Patient Medical History Hx Anemia: No Hx Asthma: No Hx Chronic Obstructive Pulmonary Disease (COPD): No Hx Cancer: No Hx Cardiac Disorders: No Hx Congestive Heart Failure: No Hx Hypertension: Yes (NO COMPLAINT WITH MEDS) Hx Hypercholesterolemia: No Hx Pacemaker: No HX Cerebrovascular Accident: No Hx Seizures: No Hx Dementia: No Hx Diabetes: No Hx Gastrointestinal Disorders: No Hx Liver Disease: No Hx Genitourinary Disorders: No Hx Sexually Transmitted Disorders: No Hx Renal Disease (ESRD): No Hx Thyroid Disease: No Hx Human Immunodeficiency Virus (HIV): No Hx Hepatitis C: No Hx Depression: No Hx Suicide Attempt: No Hx Bipolar Disorder: No Hx Schizophrenia: No Other Medical History: DENIES - Patient Surgical History Past Surgical History: No Hx Neurologic Surgery: No Hx Cataract Extraction: No Hx Cardiac Surgery: No Hx Lung Surgery: No Hx Breast Surgery: No Hx Breast Biopsy: No Hx Abdominal Surgery: No Hx Appendectomy: No Hx Cholecystectomy: No Hx Genitourinary Surgery: No Hx Section: No Hx Orthopedic Surgery: No Anesthesia Reaction: No - PPD History Previous Implant?: Yes Documented Results: Negative w/proof Implanted On Prior [facility] Admission?: Yes Date: 11/27/19 Results: 0mm PPD to be Administered?: No - Smoking Cessation Smoking history: Current every day smoker Have you smoked in the past 12 months: Yes Aproximately how many cigarettes per day: 3 Cigars Per Day: 0 Hx Chewing Tobacco Use: No Initiated information on smoking cessation: Yes 'Breaking Loose' booklet given: 01/20/20 - Substance & Tx. History Hx Alcohol Use: Yes Hx Substance Use: Yes Substance Use Type: Heroin Hx Substance Use Treatment: Yes ([facility]) - Substances abused Heroin Substance route: Inhalation Frequency: Daily Amount used: 10 BAGS Age of first use: 32 Date of last use: 01/20/20 Admission Physical Exam BHS - Vital Signs Vital Signs: Vital Signs - 24 hr 01/20/20 22:21 Temperature 97.5 F L Pulse Rate 80 Respiratory 18 Rate Blood Pressure 138/86 - Physical General Appearance: Yes: Mild Distress, Tremorous (FELT), Anxious HEENTM: Yes: EOMI, Normocephalic, Normal Voice, ARIELLE, Pharynx Normal, Nasal Congestion, Other (POOR DENTITION) Respiratory: Yes: Chest Non-Tender, Lungs Clear, Normal Breath Sounds, No Respiratory Distress, No Accessory Muscle Use Neck: Yes: No masses,lesions,Nodules, Supple, Trachea in good position Breast: Yes: Breasts Symetrical Cardiology: Yes: Regular Rhythm, S1, S2, Tachycardia Abdominal: Yes: Normal Bowel Sounds, Non Tender, Soft Genitourinary: Yes: Within Normal Limits Back: Yes: Normal Inspection Musculoskeletal: Yes: full range of Motion, Gait Steady Extremities: Yes: Normal Capillary Refill, Normal Range of Motion, Non-Tender, Tremors Neurological: Yes: Fully Oriented, Alert, Motor Strength 5/5, Depressed Affect Integumentary: Yes: Dry, Warm Lymphatic: Yes: Within Normal Limits - Diagnostic (1) Depressed affect Current Visit: Yes Status: Acute (2) Opioid dependence with withdrawal Current Visit: Yes Status: Acute (3) Nicotine dependence Current Visit: Yes Status: Chronic Qualifiers: Nicotine product type: cigarettes Substance use status: uncomplicated Qualified Code(s): F17.210 - Nicotine dependence, cigarettes, uncomplicated (4) Non compliance w medication regimen Current Visit: Yes Status: Suspected (5) Substance induced mood disorder Current Visit: Yes Status: Suspected Cleared for Admission [facility] - Detox or Rehab [facility] Level of Care: Medically Managed Detox Regimen/Protocol: Methadone Claeared for Rehab Admission: No Breathalyzer - Breathalyzer Breathalyzer: 0 Urine Drug Screen - Test Device Lot number: [id number] Expiration date: 07/29/21 - Control Is test valid?: Yes - Results Drug screen NEGATIVE: No Urine drug screen results: FEN-Fentanyl, MOP-Opiates Inpatient Rehab Admission - Rehab Decision to Admit Inpatient rehab admission?: No
[2020-01-20] MEDS ORDERED: P-EPHED 60MG/TRIPROLIDI 2.5MG TABLET PO PRN (23:18)
[2020-01-20] MEDS ORDERED: BISMUTH SUBSALICYLATE 524 MG/30 ML UD PO PRN (23:18)
[2020-01-20] MEDS ORDERED: MAGNESIUM CITRATE 300 ML BOTTLE PO PRN (23:18)
[2020-01-20] MEDS ORDERED: IBUPROFEN 400 MG TABLET (FP) PO PRN (23:18)
[2020-01-20] MEDS ORDERED: ONDANSETRON *ODT* 4 MG TABLET SL PRN (23:18)
[2020-01-20] MEDS ORDERED: NICOTINE POLACRILEX 2 MG GUM BUC PRN (23:18)
[2020-01-20] MEDS ORDERED: MENTHOL/PHENOL 1 EACH UD MM PRN (23:18)
[2020-01-20] MEDS ORDERED: MAG HYDROX/AL HYDROX/SIMETH 30 ML UNIT-DOSE CUP PO PRN (23:18)
[2020-01-20] MEDS ORDERED: guaiFENesin 200 MG/10 ML 10 ML UNIT-DOSE CUPS PO PRN (23:18)
[2020-01-20] MEDS ORDERED: MAGNESIUM HYDROX 2400MG/30ML ORAL SUSPENSION 30 ML CUP PO PRN (23:18)
[2020-01-20] MEDS ORDERED: DICYCLOMINE HCL 10 MG CAPSULE PO PRN (23:18)
[2020-01-20] MEDS ORDERED: NALOXONE HCL 0.4 MG/ML VIAL IM PRN (23:18)
[2020-01-20] MEDS ORDERED: ACETAMINOPHEN 325 MG TABLET (FP) PO PRN ×2 (23:18)
[2020-01-20] MEDS ORDERED: METHOCARBAMOL 500 MG TABLET PO PRN (23:18)
[2020-01-20] MEDS ORDERED: METHADONE HCL 10 MG TABLET (FOR DETOX USE ONLY) PO ONE (23:45)
[2020-01-21] MEDS: hydrOXYzine PAMOATE 25 MG CAPSULE (FP) PO PRN ×2 (00:56→22:26)
[2020-01-21] MEDS: cloNIDine HCL 0.1 MG TABLET PO PRN ×2 (00:56→22:26)
[2020-01-21] MEDS ORDERED: METHADONE HCL 5 MG TABLET (FOR DETOX USE ONLY) ONE (08:42)
[2020-01-21] MEDS ORDERED: METHADONE HCL 10 MG TABLET (FOR DETOX USE ONLY) ONE (08:42)
[2020-01-21] MEDS ORDERED: NICOTINE 14 MG/24 HOURS TOPICAL PATCH TD SCH (10:00)
[2020-01-21] MEDS ORDERED: METHADONE (DETOX) 20 MG, METHADONE (DETOX) 5 MG PO ONE (10:00)
[2020-01-21] MEDS ORDERED: PRENATAL VITAMINS W/ FOLIC ACID TABLET (FP) PO SCH (10:00)
[2020-01-21 10:38] LABS: HEMATOCRIT 43.6 % (35.4-49); HEMOGLOBIN 14.2 GM/dL (11.7-16.9); MCH 29.6 pg (25.7-33.7); MCHC 32.7 g/dl (32.0-35.9); MEAN CELL VOLUME 90.7 fl (80-96); MEAN PLT VOLUME 9.6 fl (7.5-11.1); PLATELET COUNT 142 K/MM3 (134-434); RBC 4.81 M/mm3 (4.00-5.60); RDW 13.9 % (11.9-15.9); WHITE BLOOD COUNT 4.5 K/mm3 (4.0-10.0)
[2020-01-21 10:47] LABS: ALBUMIN 3.3 g/dl (3.4-5.0); BILIRUBIN,TOTAL 0.5 mg/dL (0.2-1); BLOOD UREA NITROGEN 10.1 mg/dL (7-18); CALCIUM 8.5 mg/dL (8.5-10.1); CREATININE 0.8 mg/dL (0.55-1.3); POTASSIUM 4.3 mmol/L (3.5-5.1)
[2020-01-21 10:48] LABS: TOT PROT 6.4 g/dl (6.4-8.2)
--- NOTE | 2020-01-21 11:40 | PN ---
BHS COWS - Scale Resting Pulse: 0= [place] 80 or Below Sweatin= No chills or Flushing Restless Observation: 1= Difficult to Sit Still Pupil Size: 1= Pupils >than Normal Bone or Joint Aches: 1= Mild Discomfort Runny Nose/ Eye Tearin= Nasal Congestion GI Upset > 30mins: 1= Stomach Cramp Tremor Observation of Outstretched Hands: 1= Tremor [place], Not Seen Yawning Observation: 1= 1-2x During Session Anxiety or Irritability: 2=Irritable/Anxious Goose Flesh Skin: 0=Smooth Skin COWS Score: 9 S Progress Note (SOAP) Subjective: alert,irritable,anxious,interrupted sleep,tremor,pain in the body and back Objective: 01/21/20 16:09 Vital Signs Temperature 96.8 F L 01/21/20 08:32 Pulse Rate 59 L 01/21/20 08:32 Respiratory Rate 18 01/21/20 08:32 Blood Pressure 150/90 01/21/20 08:32 O2 Sat by Pulse Oximetry (%) 97 01/21/20 08:32 01/21/20 16:09 Laboratory Last Values WBC 4.5 K/mm3 (4.0-10.0) 01/21/20 07:00 RBC 4.81 M/mm3 (4.00-5.60) 01/21/20 07:00 Hgb 14.2 GM/dL (11.7-16.9) 01/21/20 07:00 Hct 43.6 % (35.4-49) 01/21/20 07:00 MCV 90.7 fl (80-96) 01/21/20 07:00 MCH 29.6 pg (25.7-33.7) 01/21/20 07:00 MCHC 32.7 g/dl (32.0-35.9) 01/21/20 07:00 RDW 13.9 % (11.9-15.9) 01/21/20 07:00 Plt Count 142 K/MM3 (134-434) 01/21/20 07:00 MPV 9.6 fl (7.5-11.1) 01/21/20 07:00 Sodium 143 mmol/L (136-145) 01/21/20 07:00 Potassium 4.3 mmol/L (3.5-5.1) 01/21/20 07:00 Chloride 108 mmol/L (98-107) H 01/21/20 07:00 Carbon Dioxide 30 mmol/L (21-32) 01/21/20 07:00 Anion Gap 4 MMOL/L (8-16) L 01/21/20 07:00 BUN 10.1 mg/dL (7-18) 01/21/20 07:00 Creatinine 0.8 mg/dL (0.55-1.3) 01/21/20 07:00 Est GFR (CKD-EPI)AfAm 136.99 01/21/20 07:00 Est GFR (CKD-EPI)NonAf 118.20 01/21/20 07:00 Random Glucose 74 mg/dL (74-106) 01/21/20 07:00 Calcium 8.5 mg/dL (8.5-10.1) 01/21/20 07:00 Total Bilirubin 0.5 mg/dL (0.2-1) 01/21/20 07:00 AST 25 U/L (15-37) 01/21/20 07:00 ALT 20 U/L (13-61) 01/21/20 07:00 Alkaline Phosphatase 64 U/L (45-117) 01/21/20 07:00 Total Protein 6.4 g/dl (6.4-8.2) 01/21/20 07:00 Albumin 3.3 g/dl (3.4-5.0) L 01/21/20 07:00 Syphilis Serology Non-reactive (NONREACTIVE) 01/20/20 08:00 HIV Ag/Ab Combo Qual Negative (NEGATIVE) 01/21/20 07:00 Assessment: 01/21/20 16:14 withdrawal symptom Plan: continue detox methadone regimen
--- NOTE | 2020-01-21 14:44 | CONSULT ---
[facility] Psychiatric Consult - Data Date of interview: 01/21/20 Admission source: [facility] Identifying data: Patient refuses psychiatric evaluation. Nursing staff is made aware.
[2020-01-21] MEDS ORDERED: MELATONIN 5 MG TABLETS PO SCH (22:00)
[2020-01-21] MEDS ORDERED: THIAMINE HCL 100 MG TABLET (FP) PO SCH (22:00)
[2020-01-22 09:48] VITALS: BP 151/91; PULSE 57; TEMP 98.2
[2020-01-22] MEDS ORDERED: METHADONE HCL 10 MG TABLET (FOR DETOX USE ONLY) PO ONE (10:00)
--- NOTE | 2020-01-22 10:17 | DS ---
[facility] Detox Discharge Summary Admission Date: 01/20/20 Discharge Date: 01/22/20 - History Present History: Opioid Dependence Additional Comments: alert,oriented x 3 lung clear on auscultation bilaterally ambulation on the unit abdomen soft,no pain,no tenderness no edema of legs patient did not want to complete treatment,all attempts to convince patient to stay with no avail, the risks of leaving the facility including explained,understood,signed release against medical advice, advise to call 911 if not feeling well Pertinent Past History: nicotine dependence hypertension - Physical Exam Results Vital Signs: Vital Signs Temperature 98.2 F 01/22/20 08:43 Pulse Rate 57 L 01/22/20 08:43 Respiratory Rate 18 01/22/20 08:43 Blood Pressure 151/91 01/22/20 08:43 O2 Sat by Pulse Oximetry (%) 97 01/22/20 06:21 Pertinent Admission Physical Exam Findings: withdrawal signs and symptom - Diagnosis (1) Opioid dependence with withdrawal Status: Acute (2) HTN (hypertension) Status: Chronic Qualifiers: Hypertension type: essential hypertension Qualified Code(s): I10 - Essential (primary) hypertension (3) Nicotine dependence Status: Chronic Qualifiers: Nicotine product type: cigarettes Substance use status: uncomplicated Qualified Code(s): F17.210 - Nicotine dependence, cigarettes, uncomplicated - AMA Did Patient Leave Against Medical Advice: Yes
--- NOTE | 2020-01-22 10:17 | PN ---
S COWS - Scale Resting Pulse: 0= NE 80 or Below Sweatin= No chills or Flushing Restless Observation: 0= Sits Still Pupil Size: 1= Pupils >than Normal Bone or Joint Aches: 2= Severe Diffuse Aches Runny Nose/ Eye Tearin= Nasal Congestion GI Upset > 30mins: 1= Stomach Cramp Tremor Observation of Outstretched Hands: 2= Slight Tremor Visible Yawning Observation: 1= 1-2x During Session Anxiety or Irritability: 2=Irritable/Anxious Goose Flesh Skin: 0=Smooth Skin COWS Score: 10 S Progress Note (SOAP) Subjective: alert,irritable,anxious,interrupted sleep,pain in the body and back,nausea Objective: 01/22/20 15:43 Vital Signs Temperature 98.2 F 01/22/20 08:43 Pulse Rate 57 L 01/22/20 08:43 Respiratory Rate 18 01/22/20 08:43 Blood Pressure 151/91 01/22/20 08:43 O2 Sat by Pulse Oximetry (%) 97 01/22/20 06:21 Laboratory Last Values WBC 4.5 K/mm3 (4.0-10.0) 01/21/20 07:00 RBC 4.81 M/mm3 (4.00-5.60) 01/21/20 07:00 Hgb 14.2 GM/dL (11.7-16.9) 01/21/20 07:00 Hct 43.6 % (35.4-49) 01/21/20 07:00 MCV 90.7 fl (80-96) 01/21/20 07:00 MCH 29.6 pg (25.7-33.7) 01/21/20 07:00 MCHC 32.7 g/dl (32.0-35.9) 01/21/20 07:00 RDW 13.9 % (11.9-15.9) 01/21/20 07:00 Plt Count 142 K/MM3 (134-434) 01/21/20 07:00 MPV 9.6 fl (7.5-11.1) 01/21/20 07:00 Sodium 143 mmol/L (136-145) 01/21/20 07:00 Potassium 4.3 mmol/L (3.5-5.1) 01/21/20 07:00 Chloride 108 mmol/L (98-107) H 01/21/20 07:00 Carbon Dioxide 30 mmol/L (21-32) 01/21/20 07:00 Anion Gap 4 MMOL/L (8-16) L 01/21/20 07:00 BUN 10.1 mg/dL (7-18) 01/21/20 07:00 Creatinine 0.8 mg/dL (0.55-1.3) 01/21/20 07:00 Est GFR (CKD-EPI)AfAm 136.99 01/21/20 07:00 Est GFR (CKD-EPI)NonAf 118.20 01/21/20 07:00 Random Glucose 74 mg/dL (74-106) 01/21/20 07:00 Calcium 8.5 mg/dL (8.5-10.1) 01/21/20 07:00 Total Bilirubin 0.5 mg/dL (0.2-1) 01/21/20 07:00 AST 25 U/L (15-37) 01/21/20 07:00 ALT 20 U/L (13-61) 01/21/20 07:00 Alkaline Phosphatase 64 U/L (45-117) 01/21/20 07:00 Total Protein 6.4 g/dl (6.4-8.2) 01/21/20 07:00 Albumin 3.3 g/dl (3.4-5.0) L 01/21/20 07:00 Syphilis Serology Non-reactive (NONREACTIVE) 01/20/20 08:00 COVID-19 (PARAS) Not detected (Not Detected) 01/20/20 23:48 HIV Ag/Ab Combo Qual Negative (NEGATIVE) 01/21/20 07:00 Assessment: 01/22/20 15:43 withdrawal symptom Plan: continue detox methadone regimen
[2020-01-23] MEDS ORDERED: METHADONE (DETOX) 10 MG, METHADONE (DETOX) 5 MG PO ONE (10:00)
[2020-01-24] MEDS ORDERED: METHADONE HCL 10 MG TABLET (FOR DETOX USE ONLY) PO ONE (10:00)
[2020-01-25] MEDS ORDERED: METHADONE HCL 5 MG TABLET (FOR DETOX USE ONLY) PO ONE (06:00)
== END 2020-01-22 09:55 | disposition home or self-care (01) | DRG 773 ==
LOC: YASAS 21:48 → Y3N 23:18
PROVIDERS: ADMIT Allergy & Immunology; ATTEND Allergy & Immunology
PROC: HZ2ZZZZ Detoxification Services for Substance Abuse Treatment (ICD-10-PCS; principal; 2020-01-20)
DX: F11.23 Opioid dependence with withdrawal (principal); F17.210 Nicotine dependence, cigarettes, uncomplicated; F19.24 Other psychoactive substance dependence with psychoactive substance-induced mood disorder; I10 Essential (primary) hypertension; R45.89 Other symptoms and signs involving emotional state; Z91.19 Patient's noncompliance with other medical treatment and regimen
CPT/HCPCS: 36415; 80053; 85027; 86780; 87389; J0735; U0003